=== PATIENT | male | born 1955 | race Two or more races ===

== ENCOUNTER 2019-05-09 06:09 | Day surgery (SDC) | payer OTHER | END 2019-05-09 10:26 | disposition home or self-care (01) | LOC: AMB-ENDOS 06:09 → ADM 11:30 | DX: D12.8 Benign neoplasm of rectum (principal); K57.30 Diverticulosis of large intestine without perforation or abscess without bleeding ==

== ENCOUNTER 2019-05-20 08:35 | Outpatient (CLI) | payer OTHER | END 2019-05-20 08:55 | disposition home or self-care (01) | LOC: LAB 08:35 | DX: D68.8 Other specified coagulation defects (principal); C20 Malignant neoplasm of rectum; Z01.811 Encounter for preprocedural respiratory examination; I10 Essential (primary) hypertension ==

== ENCOUNTER 2019-05-22 13:59 | Inpatient (IN) | payer OTHER ==
[~2019-05-22] VITALS: Ht 180.3 cm; Wt 79.4 kg
[2019-05-22] MEDS ORDERED: TAMS0.4C PO (14:17)
[2019-05-30] MEDS ORDERED: TAMSULOSIN HCL0.4 MG PO (10:08)
[2019-05-30] MEDS ORDERED: OXYC1TAB9 PO (10:09)
== END 2019-05-30 13:39 | disposition home or self-care (01) | DRG 330 ==
LOC: O/R 05-27 09:00 → SURG 05-27 09:26 → O/R 05-27 14:15 → SURG 05-27 18:18
PROVIDERS: ADMIT Surgery
PROC: 0DTP4ZZ Resection of Rectum, Percutaneous Endoscopic Approach (ICD-10-PCS; 2019-05-27)
PROC: 0DQA4ZZ Repair Jejunum, Percutaneous Endoscopic Approach (ICD-10-PCS; 2019-05-27)
PROC: 0DJD8ZZ Inspection of Lower Intestinal Tract, Via Natural or Artificial Opening Endoscopic (ICD-10-PCS; 2019-05-27)
PROC: 0D1B4Z4 Bypass Ileum to Cutaneous, Percutaneous Endoscopic Approach (ICD-10-PCS; principal; 2019-05-27 09:00)
DX: C20 Malignant neoplasm of rectum (principal); K91.71 Accidental puncture and laceration of a digestive system organ or structure during a digestive system procedure; F43.22 Adjustment disorder with anxiety; R33.8 Other retention of urine; K63.89 Other specified diseases of intestine; R59.0 Localized enlarged lymph nodes; N40.0 Benign prostatic hyperplasia without lower urinary tract symptoms

== ENCOUNTER 2019-09-23 06:14 | Day surgery (SDC) | payer OTHER ==
[~2019-09-23 06:14] MED LIST: OXYC1TAB9 PO; TAMS0.4C PO; TAMSULOSIN HCL0.4 MG PO
[2019-09-23] MEDS ORDERED: ULTRACET PO (08:29)
== END 2019-09-23 10:40 | disposition home or self-care (01) ==
LOC: CIR.AMB 06:14
PROVIDERS: ATTEND Surgery
DX: C20 Malignant neoplasm of rectum (principal)
CPT/HCPCS: 36561; C1751

== ENCOUNTER 2019-10-08 11:43 | Inpatient (IN) | payer OTHER ==
[~2019-10-08] VITALS: Ht 180.3 cm; Wt 72.6 kg
[~2019-10-08 11:43] MED LIST changes: +ULTRACET PO
[2019-10-14] MEDS ORDERED: KEFLEX500 MG PO (14:42)
[2019-10-14] MEDS ORDERED: HIBICLENS118 ML TOP (14:43)
[2019-10-14] MEDS ORDERED: ULTRAM50 MG PO (14:44)
== END 2019-10-14 17:05 | disposition home or self-care (01) | DRG 315 ==
LOC: ER 11:43 → SURG 13:53 → SURH 13:53
PROVIDERS: Surgery; ADMIT Surgery; ATTEND Surgery
PROC: 02PYX3Z Removal of Infusion Device from Great Vessel, External Approach (ICD-10-PCS; 2019-10-10)
PROC: 0JPT3WZ Removal of Totally Implantable Vascular Access Device from Trunk Subcutaneous Tissue and Fascia, Percutaneous Approach (ICD-10-PCS; principal; 2019-10-10 08:15)
PROC: 02HV33Z Insertion of Infusion Device into Superior Vena Cava, Percutaneous Approach (ICD-10-PCS; 2019-10-14)
DX: T80.212A Local infection due to central venous catheter, initial encounter (principal); L03.313 Cellulitis of chest wall; C20 Malignant neoplasm of rectum; B95.61 Methicillin susceptible Staphylococcus aureus infection as the cause of diseases classified elsewhere; Z93.2 Ileostomy status; D70.1 Agranulocytosis secondary to cancer chemotherapy; T45.1X5A Adverse effect of antineoplastic and immunosuppressive drugs, initial encounter

== ENCOUNTER 2020-04-23 11:30 | Inpatient (IN) | payer OTHER ==
[~2020-04-23] VITALS: Ht 180.3 cm; Wt 77.6 kg
[~2020-04-23 11:30] MED LIST changes: +HIBICLENS118 ML TOP; +KEFLEX500 MG PO; +ULTRAM50 MG PO
[2020-05-02] MEDS ORDERED: HYOSCYAMINE0.125 M1 SL (10:21)
[2020-05-02] MEDS ORDERED: TAMS0.4C PO (10:21)
[2020-05-02] MEDS ORDERED: INTESTINEX680 M1 PO (10:22)
[2020-05-02] MEDS ORDERED: OXYC1TAB9 PO (10:22)
== END 2020-05-02 15:17 | disposition home or self-care (01) | DRG 349 ==
LOC: ADM 11:30 → EDSTATUS 11:30 → SURH 04-29 05:11 → O/R 04-29 05:11 → SURH 04-29 07:00
PROVIDERS: ADMIT Surgery; ATTEND Surgery
PROC: 0DBB4ZZ Excision of Ileum, Percutaneous Endoscopic Approach (ICD-10-PCS; principal; 2020-04-29 07:00)
DX: Z43.2 Encounter for attention to ileostomy (principal); Z85.048 Personal history of other malignant neoplasm of rectum, rectosigmoid junction, and anus

== ENCOUNTER → 2021-08-20 08:38 | Outpatient (CLI) | payer OTHER ==
[~2021-08-20 08:38] MED LIST changes: +CARDIZEM30 MG PO; +HYOSCYAMINE0.125 M1 SL; +INTESTINEX680 M1 PO
== END | disposition home or self-care (01) ==
LOC: LAB 08:38
PROVIDERS: ATTEND Internal Medicine Geriatric Medicine
DX: D68.9 Coagulation defect, unspecified (principal)

== ENCOUNTER 2021-09-01 07:25 | Day surgery (SDC) | payer OTHER ==
[~2021-09-01] VITALS: Ht 180.3 cm; Wt 67.1 kg
[2021-09-01] MEDS ORDERED: PERCOCET 5-3251 EACH PO (12:07)
[2021-09-01] MEDS ORDERED: HIBICLENS118 ML TOP (12:07)
[2021-09-01] MEDS ORDERED: KETO10TA2 PO (12:08)
== END 2021-09-01 16:10 | disposition home or self-care (01) ==
LOC: CIR.AMB 07:25
PROVIDERS: ATTEND Surgery
DX: C21.0 Malignant neoplasm of anus, unspecified (principal); Z85.048 Personal history of other malignant neoplasm of rectum, rectosigmoid junction, and anus; N40.1 Benign prostatic hyperplasia with lower urinary tract symptoms; Z20.822 Contact with and (suspected) exposure to COVID-19